=== PATIENT | male | born 1985 | race Caucasian/White ===

== ENCOUNTER 2022-03-04 13:46 | Emergency (ER) | payer BC ==
[2022-03-04] MEDS ORDERED: Doxycycline Susp 25 MG/5 ML 60 ML Bottle PO ONE (16:13)
== END 2022-03-04 16:44 | disposition home or self-care (01) ==
LOC: JD.ED 13:46
DX: S01.81XA Laceration without foreign body of other part of head, initial encounter (principal); Z88.1 Allergy status to other antibiotic agents; Z88.0 Allergy status to penicillin; Z79.899 Other long term (current) drug therapy; Z86.16 Personal history of COVID-19; W22.8XXA Striking against or struck by other objects, initial encounter
CPT/HCPCS: 12013; 99282; A9270-GY